=== PATIENT | male | born 1975 | race Two or more races ===

== ENCOUNTER 2019-02-09 01:47 | Emergency (ER) | payer OTHER ==
[~2019-02-09] VITALS: Ht 182.9 cm; Wt 74.8 kg
[2019-02-09 01:48] VITALS: BP 140/86
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
== END 2019-02-09 02:45 | disposition left against medical advice (07) ==
LOC: ED 02:28
DX: R51 Headache (principal); F14.10 Cocaine abuse, uncomplicated
CPT/HCPCS: 70450; 99284